=== PATIENT | male | born 1990 | race Caucasian/White ===

== ENCOUNTER 2025-02-13 01:28 | Emergency (ER) | payer SELFPAY ==
[2025-02-13] MEDS ORDERED: Lidocaine 1% PF 5 ML VIAL ONE (01:43)
== END 2025-02-13 02:00 | disposition home or self-care (01) ==
LOC: BURERS 01:28
DX: S61.011A Laceration without foreign body of right thumb without damage to nail, initial encounter (principal); W26.0XXA Contact with knife, initial encounter
CPT/HCPCS: 12001; 99282